=== PATIENT | male | born 1980 | race Caucasian/White ===

== ENCOUNTER 2022-11-12 10:05 | Observation (INO) | payer OTHER, SELFPAY ==
[2022-11-12] VITALS (7 sets, daily range): BP systolic 101–110; BP diastolic 53–82; PULSE 68–81; RESP 10–21; TEMP 36.3–36.7; O2SAT 95–100
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
[2022-11-12 11:28] LABS: Basophils Percent Auto 0.6 % (0.2-1.2); Eosinophils Absolute Auto 0.2 K/mm3 (0-0.3); Eosinophils Percent Auto 3.8 % (0-4.4); Hematocrit 44.9 % (42.0-52.0); Immature Granulocyte Absolute 0.01 K/mm3 (0.00-0.031); Immature Granulocyte Percent A 0.2 % (0-0.5); Lymphocytes Percent Auto 36.1 % (18.3-44.2); Mean Corpuscular HGB Conc 33.4 g/dl (32-36); Mean Corpuscular Hemoglobin 32.2 pg (26-34); Mean Corpuscular Volume 96.4 fl (80-100); Mean Platelet Volume 10.9 fl (7.4-10.4); Monocytes Absolute Auto 0.4 K/mm3 (0.1-0.6); Monocytes Percent Auto 8.1 % (2.6-8.5); Neutrophils Absolute Auto 2.4 K/mm3 (1.3-6.7); Neutrophils Percent Auto 51.2 % (45.5-73.1); Platelet Count Result 214 k/mm3 (150-375); Red Blood Count 4.66 M/mm3 (4.6-6.20); Red Cell Distribution Width 12.3 % (11.5-14.5); White Blood Count 4.7 K/mm3 (4.5-10.0)
[2022-11-12] MEDS: levETIRAcetam 1000MG/NACL100ML 1,000 MG/100 ML BAG 400 MG IVPB (11:30)
[2022-11-12] MEDS: SODIUM CHLORIDE 0.9% IV 1,000 ML 125 ML IV CONT (11:30)
[2022-11-12 11:40] LABS: Alanine Aminotransferase 26 U/L (6-50); Albumin Level 4.3 g/dL (3.5-5.1); Alkaline Phosphatase 158 U/L (38-126); Anion Gap 4 mmol/L (8-16); Aspartate Amino Transferase 24 U/L (17-59); Bilirubin,Total 0.4 mg/dL (0.2-1.3); Blood Urea Nitrogen 12 mg/dL (9-20); Calcium 8.6 mg/dL (8.4-10.2); Carbon Dioxide 30 mmol/L (22-30); Chloride 107 mmol/L (98-107); Estimated CRCL calculation 83 ml/min; Estimated Glomerular Filt Rate > 60; Glucose 93 mg/dL (65-110); Potassium 3.7 mmol/L (3.4-5.0); Sodium 141 mmol/L (137-145)
[2022-11-12 11:49] LABS: INR 1.1; Prothrombin Time 13.3 Seconds (11.1-14.7)
[2022-11-12 11:50] LABS: Partial Thromboplastin Time 28.2 SECONDS (22.3-36.8)
[2022-11-12 12:26] LABS: Influenza A QL RT-PCR Negative (Negative); Influenza B QL RT-PCR Negative (Negative); SARS-CoV-2 RNA PCR Negative
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
--- NOTE | 2022-11-12 14:22 | WPDANESEPPF ---
Anes - Initial Pre Proc Eval Procedure: Operation Date: 11/12/22 15:00 Proposed Procedures p Percutaneous Endoscopic Gastrostomy - Juan Luis Mercado MD Date/Time: 11/12/22 14:22 Surgeon: Jeremie Wilkins MD Pre Op Diagnosis: G Button Malfunction Patient Data Age: 41 Gender: M Height: 1.6 m Weight: 42 kg Last Vital Signs Temp 36.7 C 11/12/22 10:01 Pulse 76 11/12/22 11:32 Resp 12 11/12/22 11:32 BP 110/82 11/12/22 11:32 Pulse Ox 98 11/12/22 11:32 O2 Del Method Room Air 11/12/22 10:01 Allergies Allergy/AdvReac Type Severity Reaction Status Date / Time Penicillins Allergy Mild HIVES Verified 02/20/12 16:25 Laboratory Tests 11/12/22 11/12/22 11/12/22 11:20 11:20 11:20 WBC 4.7 K/mm3 K/mm3 (4.5-10.0) RBC 4.66 M/mm3 M/mm3 (4.6-6.20) Hgb 15.0 g/dL g/dL (14.0-18.0) Hct 44.9 % % (42.0-52.0) MCV 96.4 fl fl (80-100) MCH 32.2 pg pg (26-34) MCHC 33.4 g/dl g/dl (32-36) RDW 12.3 % % (11.5-14.5) Plt Count 214 k/mm3 k/mm3 (150-375) MPV 10.9 fl H fl (7.4-10.4) Immature Gran % (Auto) 0.2 % % (0-0.5) Neut % (Auto) 51.2 % % (45.5-73.1) Lymph % (Auto) 36.1 % % (18.3-44.2) [place] % (Auto) 8.1 % % (2.6-8.5) Eos % (Auto) 3.8 % % (0-4.4) Baso % (Auto) 0.6 % % (0.2-1.2) Lymph # (Auto) 1.70 K/mm3 K/mm3 (0.9-3.2) [place] # (Auto) 0.4 K/mm3 K/mm3 (0.1-0.6) Eos # (Auto) 0.2 K/mm3 K/mm3 (0-0.3) Baso # (Auto) 0.0 K/mm3 K/mm3 (0.0-0.1) Abs Immat Gran (auto) 0.01 K/mm3 K/mm3 (0.00-0.031) Absolute Neuts (auto) 2.4 K/mm3 K/mm3 (1.3-6.7) Absolute Nucleated RBC 0.0 K/mm3 K/mm3 (0.0-0.012) Nucleated RBC % 0.0 % % (0.0-0.2) PT 13.3 Seconds Seconds (11.1-14.7) INR 1.1 APTT 28.2 SECONDS SECONDS (22.3-36.8) Sodium 141 mmol/L mmol/L (137-145) Potassium 3.7 mmol/L mmol/L (3.4-5.0) Chloride 107 mmol/L mmol/L (98-107) Carbon Dioxide 30 mmol/L mmol/L (22-30) Anion Gap 4 mmol/L L mmol/L (8-16) BUN 12 mg/dL mg/dL (9-20) Creatinine 0.60 mg/dL L mg/dL (0.7-1.3) Estim Creat Clear Calc 83 ml/min ml/min Estimated GFR > 60 (59 - ) Glucose 93 mg/dL mg/dL (65-110) Calcium 8.6 mg/dL mg/dL (8.4-10.2) Total Bilirubin 0.4 mg/dL mg/dL (0.2-1.3) AST 24 U/L U/L (17-59) ALT 26 U/L U/L (6-50) Alkaline Phosphatase 158 U/L H U/L (38-126) Total Protein 8.0 g/dL g/dL (6.3-8.2) Albumin 4.3 g/dL g/dL (3.5-5.1) Influenza A (RT-PCR) Influenza B (RT-PCR) SARS-CoV-2 RNA (RT-PCR) 11/12/22 11:24 WBC RBC Hgb Hct MCV MCH MCHC RDW Plt Count MPV Immature Gran % (Auto) Neut % (Auto) Lymph % (Auto) [place] % (Auto) Eos % (Auto) Baso % (Auto) Lymph # (Auto) [place] # (Auto) Eos # (Auto) Baso # (Auto) Abs Immat Gran (auto) Absolute Neuts (auto) Absolute Nucleated RBC Nucleated RBC % PT INR APTT Sodium Potassium Chloride Carbon Dioxide Anion Gap BUN Creatinine Estim Creat Clear Calc Estimated GFR Glucose Calcium Total Bilirubin AST ALT Alkaline Phosphatase Total Protein Albumin Influenza A (RT-PCR) Negative (Negative) Influenza B (RT-PCR) Negative (Negative) SARS-CoV-2 RNA (RT-PCR) Negative Patient hx anesthesia problems: none Family hx anesthesia problems: none Results Review: All pre-operative results and docum
[2022-11-12] MEDS: LACTATED RINGERS 1,000 ML 150 ML IV CONT (14:30)
--- NOTE | 2022-11-12 15:38 | SUR.PHASEII ---
Infant connector and syringe given to patient's mother and instruction on how to use.
== END 2022-11-12 17:39 | disposition home or self-care (01) ==
LOC: ANHED 13:14 → ANH3MEDSUR 13:26
PROVIDERS: Internal Medicine Gastroenterology; Physician Assistant; Admitting Provider Internal Medicine; Emergency Provider Emergency Medicine; PCP Family Medicine; Visit Provider Internal Medicine
PROC: 0DH63UZ Insertion of Feeding Device into Stomach, Percutaneous Approach (ICD-10-PCS; CPT 43246; principal; 2022-11-12 15:00)
DX: K94.23 Gastrostomy malfunction (principal); R13.19 Other dysphagia; R63.30 Feeding difficulties, unspecified; Z20.822 Contact with and (suspected) exposure to COVID-19; G80.9 Cerebral palsy, unspecified; G40.909 Epilepsy, unspecified, not intractable, without status epilepticus; Z68.1 Body mass index [BMI] 19.9 or less, adult; Z79.899 Other long term (current) drug therapy
CPT/HCPCS: 36415; 43246; 80053; 85025; 85610; 85730; 87636; 96361; 96365; 96375; 99285; G0378; G0379; J1953; J2704; J3370; J7030; J7120

== ENCOUNTER 2023-04-24 01:57 | Day surgery (SDC) | payer OTHER, SELFPAY ==
[2023-04-19 10:25] VITALS: BMI 22.7
--- NOTE | 2023-04-23 19:55 | P.HP_ITS ---
History of Present Illness History of Present Illness Consent: Risks, benefits, and alternatives have been discussed and questions answered. Patient agrees to proceed with procedure. Chief complaint: dysphagia Narrative: Hunter Reilly is a 42 year old male chronically dependent on G-tube feedings [facility] Past Medical History Medical History Cerebral palsy Epilepsy Severe disability Surgical History Surgical History History of gastrostomy tube placement History of Gabriel fundoplication History of release of tendon Bilateral lower extremities. Family History Family History Other Hypertension Social History Social History Social History: The patient lives with his mother and stepfather. He is bed-bound and does not have any trunk control. He requires full assistance with all activities of daily living. He is unable to make his needs known as pertaining to stool and bowel movements and wears depends. No alcohol, tobacco, or drug use. Healthcare power of outside plant technician: Code status: Full code. Smoking status: Never smoker Alcohol intake: never Substance use: never Substance use type: does not use Living arrangements: with family Spiritual care concerns: No Meds Home Medications and Allergies Home Medications Medication Instructions Recorded Confirmed Type carbamazepine 100 mg/5 mL oral 100 mg feeding tube TID 11/12/22 04/19/23 History suspension polyethylene glycol 3350 17 gram 17 g feeding tube DAILY 11/12/22 04/19/23 History oral powder packet Allergies Allergy/AdvReac Type Severity Reaction Status Date / Time Penicillins Allergy Mild HIVES Verified 04/24/23 13:56 Exam Const: General: underweight and other ( contracted due to cerebral palsy) GI: Inspection: other ( G-tube in place) GI Palp: No abdominal tenderness and Yes No hepatosplenomegaly present Assessment and Plan Assessment and plan (1) Dysphagia: Code(s): R13.10 - Dysphagia, unspecified Status: Acute Assessment and Plan: Replacement of Gastrostomy tube
[2023-04-24 14:00] VITALS: BP 123/85; PULSE 119; RESP 18; TEMP 36.4; O2SAT 96
--- NOTE | 2023-04-24 14:40 | OP_ITS ---
DATE OF PROCEDURE: 04/24/2023 PROCEDURE PERFORMED: Gastrostomy tube replacement. PREOPERATIVE DIAGNOSIS: Senescent gastrostomy tube. POSTOPERATIVE DIAGNOSIS: Senescent gastrostomy tube. PROCEDURE IN DETAIL: With the patient in the semi-recumbent position, his indwelling percutaneous gastrostomy tube was removed with the usual traction technique after liberally lubricating the tract. A replacement G-tube was then inserted. It was a 20-Filipino tube. The balloon was inflated with 20 mL of water and dressing applied externally. He tolerated the procedure well. D I MT: Af[place]
== END 2023-04-24 14:14 | disposition home or self-care (01) ==
PROVIDERS: PCP Family Medicine; Visit Provider Internal Medicine Gastroenterology
PROC: 0DH63UZ Insertion of Feeding Device into Stomach, Percutaneous Approach (ICD-10-PCS; CPT 43246; principal; 2023-04-24 14:30)
DX: R13.10 Dysphagia, unspecified (principal); Z43.1 Encounter for attention to gastrostomy; G40.909 Epilepsy, unspecified, not intractable, without status epilepticus; G80.9 Cerebral palsy, unspecified
CPT/HCPCS: 43762; 99211; G0463

== ENCOUNTER 2023-12-05 06:25 | Inpatient (IN) | payer OTHER, SELFPAY ==
[2023-12-05] VITALS (18 sets, daily range): BP systolic 101–115; BP diastolic 65–74; PULSE 96–113; RESP 15–18; TEMP 36.8–37.7; O2SAT 94–96; BMI 17.0; BMI 19.6
--- NOTE | ~2023-12-05 | XR_ITS ---
XR chest 1V portable DATE: 12/07/2023 05:52 INDICATION: Pneumonia TECHNIQUE: Portable AP chest on 12/07/2023 at 0545 hours COMPARISON: 12/05/2023 portable AP chest at 0656 hours FINDINGS: There is prominent patchy atelectasis and/or consolidation in the right mid and lower lung, with elevation of the right leaf of the diaphragm. There is mild infiltrate or atelectasis in the left lower lobe. Heart size appears within normal range considering medication associated with AP projection. No pleur al effusion or pulmonary vascular congestion or pneumothorax is evident. Osteopenia. IMPRESSION: Patchy atelectasis and/or consolidation of right mid and lower lung, mild infiltrate or a telectasis, left lower lobe Reviewed, dictated and finalized at location [facility]. [employer]MENT [employer] IMPRESSION: Patchy atelectasis and/or consolidation of right mid and lower lung , mild infiltrate or atelectasis, left lower lobe
--- NOTE | ~2023-12-05 | XR_ITS ---
Portable chest x-ray Comparison: 09/20/2012 Clinical History: Shortness of breath Findings: Possible medial left basilar airspace consolidation. Right lung clear. Cardiomediastinal silhouette is stable. Bones and soft tissues are unremarkable. Impression: Possible medial left basilar airspace consolidation. Correlate for left basilar pneumonia. Reviewed, dictated and finalized at [facility]. BALL P[employer]ER Impression: Possible medial left basilar airspace consolidation. Correlate for left basilar pneumonia.
--- NOTE | 2023-12-05 06:34 | ECG_ITS ---
Measurements Intervals [place] Rate: 99 P: 54 [place]: 104 QRS: 81 QRSD: 88 T: 29 QT: 318 QTc: 408 Interpretive Statements SINUS RHYTHM WITH SHORT [place] INTERVAL MINIMAL Q WAVES- ANTEROLATERAL LEADS BASELINE ARTIFACT- II, III, AVR, AVL, AVF, V1 BORDERLINE ECG NO PREVIOUS ECG AVAILABLE FOR COMPARISON Electronically Signed On 12-05-2023 7:39:52 TELEMARKETER by Shabbir Andrade D.O.
[2023-12-05 06:50] LABS: White Blood Count 14.4 K/mm3 (4.5-10.0)
[2023-12-05 06:51] LABS: Basophils Percent Auto 0.3 % (0.2-1.2); Eosinophils Percent Auto 0.2 % (0-4.4); Hematocrit 41.9 % (42.0-52.0); Hemoglobin 13.7 g/dL (14.0-18.0); Immature Granulocyte Absolute 0.06 K/mm3 (0.00-0.031); Immature Granulocyte Percent A 0.4 % (0-0.5); Lymphocytes Absolute Auto 1.31 K/mm3 (0.9-3.2); Lymphocytes Percent Auto 9.1 % (18.3-44.2); Mean Corpuscular HGB Conc 32.7 g/dl (32-36); Mean Corpuscular Hemoglobin 30.7 pg (26-34); Mean Corpuscular Volume 93.9 fl (80-100); Mean Platelet Volume 9.3 fl (7.4-10.4); Monocytes Percent Auto 6.8 % (2.6-8.5); Neutrophils Percent Auto 83.2 % (45.5-73.1); Platelet Count Result 459 k/mm3 (150-375); Red Blood Count 4.46 M/mm3 (4.6-6.20); Red Cell Distribution Width 11.6 % (11.5-14.5)
[2023-12-05 07:03] LABS: Alanine Aminotransferase 20 U/L (6-50); Albumin Level 3.7 g/dL (3.5-5.1); Alkaline Phosphatase 167 U/L (38-126); Anion Gap 8 mmol/L (8-16); Aspartate Amino Transferase 23 U/L (17-59); Bilirubin,Total 0.5 mg/dL (0.2-1.3); Blood Urea Nitrogen 10 mg/dL (9-20); Calcium 9.1 mg/dL (8.4-10.2); Carbon Dioxide 30 mmol/L (22-30); Chloride 99 mmol/L (98-107); Estimated CRCL calculation 118 ml/min; Estimated Glomerular Filt Rate > 60; Glucose 99 mg/dL (65-110); Potassium 3.9 mmol/L (3.4-5.0); Sodium 137 mmol/L (137-145)
[2023-12-05 07:22] LABS: Influenza A QL RT-PCR Negative (Negative); Influenza B QL RT-PCR Negative (Negative); RSV RNA, RT-PCR Negative (Negative); SARS-CoV-2 RNA PCR Negative (Negative)
[2023-12-05] MEDS: ALBUTEROL SULFATE NEB 2.5 MG/3 ML INH INHALATION ×3 (07:34→21:31)
[2023-12-05] MEDS: IPRATROPIUM BR 0.02% INH SOLN 0.5 MG/2.5 ML VIAL INHALATION ×3 (07:35→21:30)
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
--- NOTE | 2023-12-05 10:20 | ADMGEN ---
This patient, Hunter Reilly, was admitted to [facility] Surg Room 322-02. Patient/family oriented to hospital policies and general routines including ID bracelet, bed and alarms, visiting hours, pain management, procedures, bathroom and other care routines, personal items, smoking policy, room service/diet, and visiting hours. Information on how to activate the Rapid Response Team has been discussed. Patient/Family are encouraged to report perceived risks to care and to ask questions if they do not understand what they are told or what they should do.
[2023-12-05] MEDS: AZITHROMYCIN 500 MG/NS 250 ML 500 MG/250 ML BAG 250 MG IVPB (10:52)
--- NOTE | 2023-12-05 10:54 | PC.NURSE ---
1020 patient arrival to the unit. mom at bedside. she stated that she gives 2 ensures for breakfast and dinner, thin liquids orally without straws, smashed bananas, mashed potatoes, peanut butter orally as well. miralax thru tube daily.
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
[2023-12-05] MEDS: polyethylene glycoL 3350 17 GM POWD.PACK FEED TUBE (15:58)
[2023-12-05] MEDS: LACTATED RINGERS 1,000 ML 100 ML IV CONT (15:58)
[2023-12-06] VITALS (12 sets, daily range): BP systolic 95–116; BP diastolic 62–70; PULSE 94–114; RESP 18; TEMP 37.2–38.3; O2SAT 91–95
[2023-12-06] MEDS: ALBUTEROL SULFATE NEB 2.5 MG/3 ML INH INHALATION ×4 (02:41→22:11)
[2023-12-06] MEDS: IPRATROPIUM BR 0.02% INH SOLN 0.5 MG/2.5 ML VIAL INHALATION ×4 (02:41→22:11)
--- NOTE | 2023-12-06 09:34 | PCNFU ---
Nutrition Follow-Up Complete: Inadequate energy intake related to need for full tube feeding as evidenced by existing PEG Goal: Meet estimated protein energy and fluid needs - Progressing Pt current nutrition is Jevity 1.2 Bolus 290 ml QID: 1392 kcal (~100% EER), 64 g protein (~100% estimated protein needs), 936 ml free water. Flushed ordered 30 ml q 4 h. Nutrition recommendation: Increase water flushes to 100 ml q 4 hours for total free water 1536 ml/day Last recorded weight is 53.5 kg. Bowel Motility: Per EMR, last BM 12/02/23 Labs Reviewed: Hgb 13.7, Hct 41.9, Cre 0.5 Meds Noted: Promethazine, Miralax Skin: WNL Additional Notes: Fluids completed. Discussed with provider, Kevin and increase flushes to 100 ml q 4 hours for total water 1536 ml/day. Discussed with RNPebbles. Monitor medications, tube feeding tolerance, labs, weights, plan of care Follow up Saturday and Saturday per policy
[2023-12-06] MEDS: AZITHROMYCIN 500 MG/NS 250 ML 500 MG/250 ML BAG 250 MG IVPB (09:38)
[2023-12-06 11:44] LABS: Glucose Point of Care 77 mg/dl (65-105)
--- NOTE | 2023-12-06 12:10 | PM.IMPN ---
Progress Note: A&P Assessment and Plan (1) Pneumonia: Qualifiers: Laterality: left Lung location: lower lobe of lung Pneumonia type: due to unspecified organism Qualified Code(s): J18.9 - Pneumonia, unspecified organism Code(s): J18.9 - Pneumonia, unspecified organism Status: Acute Assessment and Plan: CXR: possible medial left basilar airspace consolidation. correlate for left basilar pneumonia. given fevers and elevation in WBC, will start treatment for CAP. Azithromycin and Ceftriaxone started on 12/05/22. started on scheduled nebs (albuterol/atrovent) Q6H. discussed chest physiotherapy with mother and she would like to forgo at this time citing worry that sputum would come up and patient would choke/not be able to clear secretions or call out. pulmonary toileting ordered but patient did not tolerate position changes well. adding infusion of LR x1L to help thin secretions. (2) Severe disability: Status: Acute Assessment and Plan: non-verbal and bed bound at baseline. start skin protective measures. restarted home Miralax. g-tube in place for feedings. (3) Epilepsy: Qualifiers: Epilepsy type: unspecified Code(s): G40.909 - Epilepsy, unspecified, not intractable, without status epilepticus Status: Acute Assessment and Plan: restarted home carbamazepine 300 mg BID via G-tube. (4) G tube feedings: Code(s): Z93.1 - Gastrostomy status Status: Acute Assessment and Plan: consult to secretary to the vice president for tube feedings. started on Jevity 1.2 q.i.d. 290 mL bolus. Plan Home Meds/Chronic Conditions - miralax and carbamazepine restarted Diet: G-Tube Feedings GI Prophylaxis: Not currently indicated DVT Prophylaxis: SCDs Lines: pIV Code Status: Full Code Time Spent With Patient Time with patient: 25 - 35 minutes Subjective Date/time seen: 12/06/23 12:10 Interval history: This is a 42-year-old male patient who chronic history of seizure disorder, cerebral palsy with severe disability and constipation. Patient was admitted for respiratory difficulty is elevated white blood cell count elevated platelet count and findings acute airspace consolidation. Patient initiated on IV antibiotics. Vest CPT therapy initiated and seems to be held. Patient is tolerating well. We will increase this to 3 times daily. COVID flu and RSV negative. Patient receives G-tube bolus feeds on routine schedule. He is tolerating bolus feeds. No supplemental oxygenation requirement at this time. Patient has had tachycardia low-grade fever. Review of Systems Review of Systems: All systems reviewed & are unremarkable except as noted in HPI and below ROS unobtainable: Yes unobtainable due to mental status Exam Const: General: no acute distress and uncomfortable HENMT: Face/Nose/Sinus: Normal nares present Mouth: Yes dry mucous membranes Eyes: General: appearance normal, both eyes and all related structures Sclera: sclerae normal Pupils: Equal, round and reactive pupils present EOM: EOMs intact bilaterally Resp: Other: poor effort, diminished at bases, no audible wheezing, faint crackles at left base. Cardio: Rate: tachycardic Rhythm: regular rhythm Other: S1-S2 present without murmur, rub, ectopy GI: GI Palp: Yes Soft to palpation Auscultation: normal bowel sounds Other: g-tube present Skin: General skin exam: normal color and no rashes or lesions noted Wounds: no wounds Neuro: Cranial nerves: Yes Equal, round and reactive pupils present Other: A/Ox0, spontaneous eye opening, withdraws from pain, and no verbal response. contractures to hands and feet. Extrem: General: normal to inspection Psych: Other: severe intellectual disability. flat affect. Objective Data Vital Signs Vital Signs: Vital Signs - 24 hr 12/05/23 13:24 12/05/23 13:24 12/05/23 13:42 Temperature Pulse Rate 105
[2023-12-06] MEDS: ACETAMINOPHEN ELIXIR 325 MG/10.15 ML UDC 650 MG FEED TUBE (16:42)
[2023-12-07] VITALS (7 sets, daily range): BP systolic 104; BP diastolic 63; PULSE 101–113; RESP 18–20; TEMP 37.1; O2SAT 91–95
[2023-12-07 02:55] LABS: Glucose Point of Care 105 mg/dl (65-105)
[2023-12-07] MEDS: ALBUTEROL SULFATE NEB 2.5 MG/3 ML INH INHALATION ×3 (03:08→13:49)
[2023-12-07] MEDS: IPRATROPIUM BR 0.02% INH SOLN 0.5 MG/2.5 ML VIAL INHALATION ×3 (03:08→13:49)
[2023-12-07 06:10] LABS: Glucose Point of Care 90 mg/dl (65-105)
[2023-12-07] MEDS: polyethylene glycoL 3350 17 GM POWD.PACK FEED TUBE (08:57)
[2023-12-07] MEDS: AZITHROMYCIN 500 MG/NS 250 ML 500 MG/250 ML BAG 250 MG IVPB (09:31)
[2023-12-07 11:28] LABS: Glucose Point of Care 94 mg/dl (65-105)
--- NOTE | 2023-12-07 12:07 | PM.IMPN ---
Subjective Date/time seen: 12/07/23 12:07 Objective Data Vital Signs Vital Signs: Vital Signs - 24 hr 12/06/23 13:10 12/06/23 13:23 12/06/23 14:00 Temperature 37.4 C Pulse Rate 111 H 114 H 105 H Respiratory Rate 18 18 18 Blood Pressure 116/69 Pulse Oximetry 94 Oxygen Delivery 12/06/23 14:47 12/06/23 16:42 12/06/23 20:00 Temperature 38.3 C H 38.3 C H Pulse Rate Respiratory Rate Blood Pressure Pulse Oximetry Oxygen Delivery Room Air 12/06/23 22:00 12/06/23 22:12 12/07/23 03:08 Temperature 37.2 C Pulse Rate 101 H 111 H 108 H Respiratory Rate 18 18 18 Blood Pressure 100/62 Pulse Oximetry 91 Oxygen Delivery 12/07/23 03:21 12/07/23 06:00 12/07/23 08:19 Temperature 37.1 C Pulse Rate 113 H 101 H 106 H Respiratory Rate 20 20 18 Blood Pressure 104/63 Pulse Oximetry 91 Oxygen Delivery 12/07/23 08:19 12/07/23 08:34 12/07/23 08:54 Temperature Pulse Rate 111 H Respiratory Rate 18 Blood Pressure Pulse Oximetry 95 Oxygen Delivery Room Air Room Air Intake/Output Intake/Output: Intake & Output 12/04/23 12/05/23 12/06/23 12/07/23 23:59 23:59 23:59 23:59 Intake Total 370 1650 50 Balance 370 1650 50 Meds/Results Medications: Active Medications Generic Name Dose Route Start Last Admin Trade Name Freq PRN Reason Stop Dose Admin Acetaminophen 650 mg 12/06/23 15:54 12/06/23 16:42 Acetaminophen Elixir 325 Mg/10.15 Ml Udc FEED TUBE 650 mg Q4H PRN Administration Mild Pain (1-3) or Fever Albuterol 2.5 mg 12/05/23 14:00 12/07/23 08:17 Albuterol Sulfate Neb 2.5 Mg/3 Ml Inh INHALATION 2.5 mg Q6HRT RADHA Administration Carbamazepine 300 mg 12/05/23 17:00 12/07/23 08:57 Carbamazepine Chew 100 Mg Chew FEED TUBE 300 mg BID RADHA Administration Ceftriaxone Sodium 1 gm in 50 mls @ 100 mls/hr 12/06/23 09:00 12/07/23 09:26 Rocephin 1 Gm/Ns 50 Ml IVPB Infused Q24H RADHA Infusion Azithromycin 500 mg in 250 mls @ 250 mls/hr 12/06/23 09:00 12/07/23 09:31 Zithromax IVPB 250 mls/hr Q24H RADHA Administration Ipratropium [place] 0.5 mg 12/05/23 14:00 12/07/23 08:17 Ipratropium Br 0.02% Inh Soln 0.5 Mg/2.5 Ml Vial INHALATION 0.5 mg Q6HRT RADHA Administration Polyethylene Glycol 17 gm 12/05/23 12:45 12/07/23 08:57 Polyethylene Glycol 3350 17 Gm Powd.Pack FEED TUBE 17 gm Q48HR RADHA Administration Promethazine HCl 12.5 mg 12/05/23 09:32 Promethazine Hcl 25 Mg/Ml Ampul IV PUSH Q6H PRN Nausea Radiology Results: ITS Impressions Chest X-Ray 12/07/23 09:55 IMPRESSION: Patchy atelectasis and/or consolidation of right mid and lower lung, mild infiltrate or atelectasis, left lower lobe Labs Labs: Laboratory Results - last 24 hr 12/07/23 12/07/23 12/07/23 00:01 06:06 11:23 POC Capillary Glucose 105 90 94
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
== END 2023-12-07 15:45 | disposition home or self-care (01) | DRG 139 ==
LOC: ANHED 09:35 → ANH3MEDSUR 10:02
PROVIDERS: Student in an Organized Health Care Education/Training Program; Admitting Provider Hospitalist; Emergency Provider Emergency Medicine; PCP Family Medicine; Visit Provider Nurse Practitioner
DX: J18.9 Pneumonia, unspecified organism (principal); G80.9 Cerebral palsy, unspecified; G40.909 Epilepsy, unspecified, not intractable, without status epilepticus; Z93.1 Gastrostomy status; Z28.21 Immunization not carried out because of patient refusal; Z20.822 Contact with and (suspected) exposure to COVID-19; Z74.01 Bed confinement status
CPT/HCPCS: 36415; 71045; 80053; 82948; 85025; 87637; 93005; 94640; 94667; 94668; 94669; 96365; 96375; 99285; A9270; G0378; G0379; J0456; J0696; J7120